=== PATIENT | female | born 1950 | race African-American/Black ===

== ENCOUNTER 2017-10-01 09:56 | Day surgery (SDC) | payer OTHER ==
[2017-09-28 15:14] VITALS: BMI 34.9
[2017-10-01] MEDS ORDERED: SODIUM CHLORIDE 0.9% P/F 10 ML VIAL IJ ONE (14:20)
[2017-10-01] MEDS ORDERED: LIDOCAINE HCL/PF 2% SDV 5ML VIAL ONE (14:20)
[2017-10-01] MEDS ORDERED: ceFAZolin SODIUM 1 GM VIAL ONE (14:20)
[2017-10-01] MEDS ORDERED: ONDANSETRON 4 MG/2 ML VIAL ONE ×2 (14:20→15:53)
[2017-10-01] MEDS ORDERED: DEXAMETHASONE SOD PHOSPHATE 4 MG/1 ML VIAL ONE (14:20)
[2017-10-01] MEDS ORDERED: MIDAZOLAM HCL 2 MG/2 ML SINGLE DOSE VIAL ONE (14:21)
[2017-10-01] MEDS ORDERED: PROPOFOL 20 ML ONE ×2 (14:24→14:49)
[2017-10-01] MEDS ORDERED: KETOROLAC TROMETHAMINE 30 MG/1 ML VIAL ONE (14:46)
[2017-10-01] MEDS ORDERED: oxyCODONE HCL 5 MG TABLET PO PRN ×2 (15:18)
[2017-10-01] MEDS ORDERED: ONDANSETRON 4 MG/2 ML VIAL IVPUSH PRN (15:18)
[2017-10-01] MEDS ORDERED: LACTATED RINGERS SOLUTION 1,000 ML IV SCH (15:30)
[2017-10-01] MEDS ORDERED: ONDANSETRON 4 MG/2 ML VIAL IVPUSH ONE (15:55)
[2017-10-01] MEDS ORDERED: oxyCODONE HCL 5 MG TABLET ONE (16:31)
[2017-10-01 17:23] VITALS: BP 139/78; PULSE 60; TEMP 98
--- NOTE | 2017-10-01 22:57 | OP ---
DATE OF OPERATION: 10/01/2017 SURGEON: Filemon Bennett M.D. SUPERVISOR GARMENT MANUFACTURING: Mo Bennett M.D. PREOPERATIVE DIAGNOSIS: Trigger thumb right. POSTOPERATIVE DIAGNOSIS: Trigger thumb right. OPERATION: Release of trigger thumb. ANESTHESIA: Conscious sedation with a local block. OPERATION DETAILS: Patient was identified, brought in operating room. Right upper extremity was prepped and draped in the routine manner with Betadine scrub solution, wiped with alcohol, DuraPrep applied. The volar crease of the metacarpophalangeal joint identified. This was incised. This is correlated exactly with a lump. It could be palpated through the subcutaneous tissues. The plane subcutaneous tissue developed right down to the tendon sheath. The A1 susana readily identified, incised with a 15 blade and fully released using blunt-tip Littler scissors. Flaps raised using a freer elevator. No complications. Wounds were thoroughly lavaged. Skin with subcutaneous tissue closed with 3-0 Monocryl. A light dressing applied. No complications. MD JIMMY Hale/[id number] MTDD
== END 2017-10-01 17:23 | disposition home or self-care (01) ==
LOC: FASU 09:56
PROVIDERS: ATTEND Orthopaedic Surgery Orthopaedic Surgery of the Spine
PROC: 0LN70ZZ Release Right Hand Tendon, Open Approach (ICD-10-PCS; principal; 2017-10-01 14:48)
DX: M65.311 Trigger thumb, right thumb (principal)
CPT/HCPCS: 94760

== ENCOUNTER 2020-07-22 04:27 | Inpatient (IN) | payer OTHER ==
[2020-07-22] MEDS ORDERED: ACETAMINOPHEN 1000 MG/100 ML VIAL (NON FORMULARY) IVPB ONE ×2 (18:32→19:10)
[2020-07-22] MEDS ORDERED: ACETAMINOPHEN INJECTION 100 ML IVPB ONE (18:44)
[2020-07-22] MEDS ORDERED: EPHEDRINE SULFATE/0.9% NACL/PF 50 MG/10 ML SYRINGE NR ONE (19:52)
[2020-07-22] MEDS ORDERED: LIDOCAINE HCL/PF 2% SDV 5ML VIAL ONE (19:52)
[2020-07-22] MEDS ORDERED: DEXAMETHASONE SOD PHOSPHATE 4 MG/1 ML VIAL ONE (19:52)
[2020-07-22] MEDS ORDERED: ONDANSETRON 4 MG/2 ML VIAL ONE (19:52)
[2020-07-22] MEDS ORDERED: PROPOFOL 20 ML ONE ×2 (19:52)
[2020-07-22] MEDS ORDERED: ROCURONIUM BROMIDE 100 MG/10 ML VIAL ONE (19:53)
[2020-07-22] MEDS ORDERED: SUCCINYLCHOLINE CHLORIDE 200 MG/10 ML SYRINGE ONE (19:53)
[2020-07-22] MEDS ORDERED: MIDAZOLAM HCL 2 MG/2 ML SINGLE DOSE VIAL ONE (20:22)
[2020-07-22] MEDS ORDERED: GLYCOPYRROLATE 0.2 MG/1 ML VIAL ONE (21:29)
[2020-07-22] MEDS ORDERED: NEOSTIGMINE METHYLSULFATE 0.5 MG/ML - 10 ML MDV ONE (21:29)
[2020-07-22] MEDS ORDERED: ONDANSETRON 4 MG/2 ML VIAL IVPUSH PRN ×2 (22:06→23:42)
[2020-07-22] MEDS: LACTATED RINGERS SOLUTION 1,000 ML IV SCH ×2 (23:00→23:05)
[2020-07-22] MEDS ORDERED: diazePAM CARPU-JECT 10 MG/2 ML DISP.SYRIN IVPUSH PRN (23:42)
[2020-07-22] MEDS ORDERED: LACTATED RINGERS SOLUTION 1,000 ML IV SCH (23:45)
[2020-07-23] MEDS: CYCLOBENZAPRINE HCL 5 MG TABLET PO SCH ×3 (00:33→21:20)
[2020-07-23] MEDS: HYDROmorphone HCl 2 MG/ML VIAL SQ PRN (00:57)
[2020-07-23 08:55] LABS: HEMATOCRIT 29.2 % (32.4-45.2); HEMOGLOBIN 9.7 GM/dL (10.7-15.3); MCHC 33.3 g/dl (32.0-36.0); MEAN CELL VOLUME 93.2 fl (80-96); MEAN PLT VOLUME 7.2 fl (7.5-11.1); PLATELET COUNT 334 K/MM3 (134-434); RBC 3.14 M/mm3 (3.60-5.2); RDW 14.2 % (11.6-15.6); WHITE BLOOD COUNT 6.9 K/mm3 (4.0-10.0)
[2020-07-23 09:35] LABS: CALCIUM 8.8 mg/dL (8.5-10.1); MAGNESIUM 1.9 mg/dL (1.8-2.4)
[2020-07-23 09:36] LABS: CREATININE 0.7 mg/dL (0.55-1.3); PHOSPHOROUS 3.9 mg/dL (2.5-4.9)
[2020-07-23] MEDS: LACTATED RINGERS SOLUTION 1,000 ML IV SCH (09:58)
[2020-07-23] MEDS: LISINOPRIL 10 MG TABLET PO SCH (09:59)
[2020-07-23] MEDS: PANTOPRAZOLE 40 MG TABLET PO SCH (09:59)
[2020-07-23] MEDS: HYDROCHLOROTHIAZIDE 12.5 MG CAPSULE (FP) PO SCH (09:59)
[2020-07-23] MEDS ORDERED: PATIENT'S OWN MEDICATION (NON-FORMULARY) (Lidocaine [Lidocaine] 1 EACH Adh..Patch) TP SCH (10:00)
[2020-07-23] MEDS: ACETAMINOPHEN 1000 MG/100 ML VIAL (NON FORMULARY) IVPB PRN (10:00)
[2020-07-23] MEDS ORDERED: DEXTROSE 5%-WATER - 50 ML IVPB ONE ×2 (11:57→17:11)
[2020-07-23] MEDS ORDERED: PIPERACILLIN/TAZOBACTAM 3.375 GM VIAL IVPB ONE ×2 (11:57→17:11)
[2020-07-23] MEDS: PIPERACILLIN/TAZOB 3.375 GM 3.375 GM in DEXTROSE 5%-WATER - 50 ML IVPB SCH ×2 (11:58→17:19)
[2020-07-23] MEDS ORDERED: PIPERACILLIN/TAZOB 3.375 GM 3.375 GM in DEXTROSE 5%-WATER - 50 ML IVPB SCH (13:00)
[2020-07-23] MEDS: LACTOBACILLUS ACIDOPHILUS 1 TABLET PO SCH ×2 (14:12→21:21)
[2020-07-23] MEDS: oxyCODONE HCL 5 MG TABLET PO PRN ×2 (14:13→21:20)
[2020-07-23] MEDS ORDERED: PIPERACILLIN/TAZOB 4.5 GM 4.5 GM in DEXTROSE 5%-WATER 100 ML IVPB SCH (15:00)
[2020-07-23] MEDS ORDERED: AMPICILLIN NA/SULBACTAM NA 3 GM in SODIUM CHLORIDE 100 ML IVPB SCH (15:00)
[2020-07-23 15:02] VITALS: BMI 35.2
[2020-07-24] MEDS ORDERED: DEXTROSE 5%-WATER - 50 ML IVPB ONE ×3 (01:19→16:53)
[2020-07-24] MEDS ORDERED: PIPERACILLIN/TAZOBACTAM 3.375 GM VIAL IVPB ONE ×3 (01:19→16:53)
[2020-07-24] MEDS: oxyCODONE HCL 5 MG TABLET PO PRN ×5 (01:30→21:42)
[2020-07-24] MEDS: PIPERACILLIN/TAZOB 3.375 GM 3.375 GM in DEXTROSE 5%-WATER - 50 ML IVPB SCH ×3 (01:56→17:05)
[2020-07-24] MEDS: LACTOBACILLUS ACIDOPHILUS 1 TABLET PO SCH ×3 (06:10→21:20)
[2020-07-24 08:48] LABS: HEMATOCRIT 29.3 % (32.4-45.2); HEMOGLOBIN 9.8 GM/dL (10.7-15.3); MCH 31.1 pg (25.7-33.7); MCHC 33.3 g/dl (32.0-36.0); MEAN CELL VOLUME 93.3 fl (80-96); MEAN PLT VOLUME 7.2 fl (7.5-11.1); PLATELET COUNT 332 K/MM3 (134-434); RBC 3.14 M/mm3 (3.60-5.2); RDW 14.1 % (11.6-15.6); WHITE BLOOD COUNT 8.3 K/mm3 (4.0-10.0)
[2020-07-24 09:11] LABS: BLOOD UREA NITROGEN 11.3 mg/dL (7-18); CALCIUM 8.6 mg/dL (8.5-10.1)
[2020-07-24 09:15] LABS: CREATININE 0.7 mg/dL (0.55-1.3)
[2020-07-24] MEDS: PANTOPRAZOLE 40 MG TABLET PO SCH (10:25)
[2020-07-24] MEDS: HYDROCHLOROTHIAZIDE 12.5 MG CAPSULE (FP) PO SCH (10:25)
[2020-07-24] MEDS: LISINOPRIL 10 MG TABLET PO SCH (10:25)
[2020-07-24] MEDS: CYCLOBENZAPRINE HCL 5 MG TABLET PO SCH (10:25)
[2020-07-24] MEDS ORDERED: POLYETHYLENE GLYCOL 3350 119 GM BTL PO PRN (17:47)
[2020-07-24] MEDS ORDERED: POLYETHYLENE GLYCOL 3350 119 GM BTL PO ONE (17:47)
[2020-07-24] MEDS ORDERED: POTASSIUM CHLORIDE TABS 20 MEQ TABLET.ER (FP) PO ONE (17:57)
[2020-07-24] MEDS: DOCUSATE SODIUM 100 MG CAPSULE (FP) PO SCH (18:49)
[2020-07-24] MEDS: CYCLOBENZAPRINE HCL 10 MG TABLET (FP) PO SCH (21:20)
[2020-07-25] MEDS ORDERED: PIPERACILLIN/TAZOBACTAM 3.375 GM VIAL IVPB ONE ×3 (00:58→16:43)
[2020-07-25] MEDS ORDERED: DEXTROSE 5%-WATER - 50 ML IVPB ONE ×3 (00:59→16:43)
[2020-07-25] MEDS: PIPERACILLIN/TAZOB 3.375 GM 3.375 GM in DEXTROSE 5%-WATER - 50 ML IVPB SCH ×3 (01:26→17:03)
[2020-07-25] MEDS: LACTOBACILLUS ACIDOPHILUS 1 TABLET PO SCH ×3 (05:31→22:05)
[2020-07-25 09:02] LABS: HEMATOCRIT 29.4 % (32.4-45.2); HEMOGLOBIN 9.9 GM/dL (10.7-15.3); MCH 30.9 pg (25.7-33.7); MCHC 33.7 g/dl (32.0-36.0); MEAN CELL VOLUME 91.8 fl (80-96); MEAN PLT VOLUME 7.1 fl (7.5-11.1); PLATELET COUNT 352 K/MM3 (134-434); WHITE BLOOD COUNT 8.2 K/mm3 (4.0-10.0)
[2020-07-25] MEDS: ACETAMINOPHEN 1000 MG/100 ML VIAL (NON FORMULARY) IVPB PRN (09:16)
[2020-07-25 09:22] LABS: CALCIUM 8.8 mg/dL (8.5-10.1)
[2020-07-25 09:23] LABS: ALBUMIN 2.4 g/dl (3.4-5.0); BLOOD UREA NITROGEN 8.6 mg/dL (7-18)
[2020-07-25 09:26] LABS: CREATININE 0.7 mg/dL (0.55-1.3)
[2020-07-25 09:27] LABS: BILIRUBIN,TOTAL 0.4 mg/dL (0.2-1); TOT PROT 6.4 g/dl (6.4-8.2)
[2020-07-25] MEDS: LISINOPRIL 10 MG TABLET PO SCH (09:29)
[2020-07-25] MEDS: HYDROCHLOROTHIAZIDE 12.5 MG CAPSULE (FP) PO SCH ×2 (09:44→16:04)
[2020-07-25] MEDS: DOCUSATE SODIUM 100 MG CAPSULE (FP) PO SCH (09:44)
[2020-07-25] MEDS: PANTOPRAZOLE 40 MG TABLET PO SCH (09:44)
[2020-07-25] MEDS: CYCLOBENZAPRINE HCL 10 MG TABLET (FP) PO SCH ×2 (09:44→22:06)
[2020-07-25] MEDS: HYDROmorphone HCl 2 MG/ML VIAL SQ PRN (15:32)
[2020-07-25] MEDS ORDERED: PROPOFOL 20 ML ONE (19:34)
[2020-07-25] MEDS ORDERED: ONDANSETRON 4 MG/2 ML VIAL IVPUSH PRN (20:05)
[2020-07-25] MEDS ORDERED: ACETAMINOPHEN 325 MG TABLET (FP) PO PRN (20:05)
[2020-07-25] MEDS ORDERED: MIDAZOLAM HCL 2 MG/2 ML SINGLE DOSE VIAL ONE (20:10)
[2020-07-25] MEDS ORDERED: ONDANSETRON 4 MG/2 ML VIAL ONE (21:02)
[2020-07-25] MEDS ORDERED: DEXAMETHASONE SOD PHOSPHATE 4 MG/1 ML VIAL ONE (21:02)
[2020-07-25] MEDS ORDERED: HYDROmorphone HCl 2 MG/ML VIAL ONE (21:11)
[2020-07-26] MEDS ORDERED: PIPERACILLIN/TAZOBACTAM 3.375 GM VIAL IVPB ONE ×3 (01:08→17:13)
[2020-07-26] MEDS ORDERED: DEXTROSE 5%-WATER - 50 ML IVPB ONE ×3 (01:08→17:13)
[2020-07-26] MEDS: PIPERACILLIN/TAZOB 3.375 GM 3.375 GM in DEXTROSE 5%-WATER - 50 ML IVPB SCH ×3 (02:05→17:17)
[2020-07-26] MEDS: LACTOBACILLUS ACIDOPHILUS 1 TABLET PO SCH ×3 (05:48→21:14)
[2020-07-26 09:00] LABS: HEMATOCRIT 31.2 % (32.4-45.2); HEMOGLOBIN 10.6 GM/dL (10.7-15.3); MCH 30.8 pg (25.7-33.7); MCHC 33.9 g/dl (32.0-36.0); PLATELET COUNT 415 K/MM3 (134-434); RBC 3.43 M/mm3 (3.60-5.2); RDW 14.2 % (11.6-15.6); WHITE BLOOD COUNT 10.7 K/mm3 (4.0-10.0)
[2020-07-26] MEDS ORDERED: PT OWN MED DRAWER 7, Y5N ONE (09:20)
[2020-07-26] MEDS: morphine SULFATE 4 MG/ML VIAL IVPUSH PRN ×2 (09:28→13:32)
[2020-07-26 09:30] LABS: ALBUMIN 2.5 g/dl (3.4-5.0); CALCIUM 9.6 mg/dL (8.5-10.1)
[2020-07-26 09:31] LABS: BLOOD UREA NITROGEN 11.5 mg/dL (7-18)
[2020-07-26] MEDS: DOCUSATE SODIUM 100 MG CAPSULE (FP) PO SCH (09:31)
[2020-07-26] MEDS: PANTOPRAZOLE 40 MG TABLET PO SCH (09:32)
[2020-07-26] MEDS: LISINOPRIL 10 MG TABLET PO SCH (09:32)
[2020-07-26] MEDS: HYDROCHLOROTHIAZIDE 12.5 MG CAPSULE (FP) PO SCH (09:32)
[2020-07-26] MEDS: CYCLOBENZAPRINE HCL 10 MG TABLET (FP) PO SCH ×2 (09:32→21:14)
[2020-07-26 09:34] LABS: CREATININE 0.7 mg/dL (0.55-1.3)
[2020-07-26 09:35] LABS: BILIRUBIN,TOTAL 0.5 mg/dL (0.2-1); TOT PROT 7.2 g/dl (6.4-8.2)
[2020-07-26] MEDS ORDERED: oxyCODONE HCL 5 MG TABLET PO PRN (13:29)
[2020-07-26] MEDS ORDERED: ACETAMINOPHEN 325 MG TABLET (FP) PO PRN (13:31)
[2020-07-26] MEDS: oxyCODONE HCL 5 MG TABLET PO PRN (17:31)
[2020-07-27] MEDS ORDERED: DEXTROSE 5%-WATER - 50 ML IVPB ONE ×3 (00:27→17:28)
[2020-07-27] MEDS ORDERED: PIPERACILLIN/TAZOBACTAM 3.375 GM VIAL IVPB ONE ×3 (00:27→17:28)
[2020-07-27] MEDS: PIPERACILLIN/TAZOB 3.375 GM 3.375 GM in DEXTROSE 5%-WATER - 50 ML IVPB SCH ×3 (01:25→17:54)
[2020-07-27] MEDS: LACTOBACILLUS ACIDOPHILUS 1 TABLET PO SCH ×3 (05:36→21:04)
[2020-07-27] MEDS: oxyCODONE HCL 5 MG TABLET PO PRN ×3 (06:56→20:51)
[2020-07-27 07:56] LABS: HEMATOCRIT 30.4 % (32.4-45.2); HEMOGLOBIN 10.3 GM/dL (10.7-15.3); MCH 31.2 pg (25.7-33.7); MCHC 33.9 g/dl (32.0-36.0); MEAN PLT VOLUME 7.4 fl (7.5-11.1); PLATELET COUNT 369 K/MM3 (134-434); RDW 14.4 % (11.6-15.6)
[2020-07-27 08:13] LABS: BLOOD UREA NITROGEN 12.9 mg/dL (7-18)
[2020-07-27 08:14] LABS: CALCIUM 8.9 mg/dL (8.5-10.1)
[2020-07-27 08:16] LABS: CREATININE 0.8 mg/dL (0.55-1.3)
[2020-07-27] MEDS: PANTOPRAZOLE 40 MG TABLET PO SCH (09:01)
[2020-07-27] MEDS: LISINOPRIL 10 MG TABLET PO SCH (09:01)
[2020-07-27] MEDS: DOCUSATE SODIUM 100 MG CAPSULE (FP) PO SCH (09:01)
[2020-07-27] MEDS: HYDROCHLOROTHIAZIDE 12.5 MG CAPSULE (FP) PO SCH (09:01)
[2020-07-27] MEDS: CYCLOBENZAPRINE HCL 10 MG TABLET (FP) PO SCH ×2 (09:02→21:04)
[2020-07-27] MEDS ORDERED: KETOROLAC TROMETHAMINE 15 MG/ML VIAL IVPUSH ONE (13:30)
[2020-07-28] MEDS ORDERED: PIPERACILLIN/TAZOBACTAM 3.375 GM VIAL IVPB ONE ×4 (00:54→23:55)
[2020-07-28] MEDS ORDERED: DEXTROSE 5%-WATER - 50 ML IVPB ONE ×4 (00:54→23:56)
[2020-07-28] MEDS: PIPERACILLIN/TAZOB 3.375 GM 3.375 GM in DEXTROSE 5%-WATER - 50 ML IVPB SCH ×3 (01:16→18:24)
[2020-07-28] MEDS: LACTOBACILLUS ACIDOPHILUS 1 TABLET PO SCH ×3 (05:24→21:22)
[2020-07-28] MEDS: oxyCODONE HCL 5 MG TABLET PO PRN ×3 (05:44→19:22)
[2020-07-28 07:54] LABS: BASO % 0.8 % (0-2.0); EOS % 1.4 % (0-4.5); HEMATOCRIT 30.8 % (32.4-45.2); HEMOGLOBIN 10.5 GM/dL (10.7-15.3); LYMPH % 25.9 % (8-40); MCH 31.5 pg (25.7-33.7); MCHC 34.2 g/dl (32.0-36.0); MEAN CELL VOLUME 92.1 fl (80-96); MEAN PLT VOLUME 6.8 fl (7.5-11.1); MONO % 12.2 % (3.8-10.2); NEUT % 59.7 % (42.8-82.8); PLATELET COUNT 366 K/MM3 (134-434); RBC 3.35 M/mm3 (3.60-5.2); RDW 14.5 % (11.6-15.6); WHITE BLOOD COUNT 9.7 K/mm3 (4.0-10.0)
[2020-07-28 08:21] LABS: ALBUMIN 2.6 g/dl (3.4-5.0); BLOOD UREA NITROGEN 12.4 mg/dL (7-18); MAGNESIUM 1.8 mg/dL (1.8-2.4)
[2020-07-28 08:24] LABS: PHOSPHOROUS 2.8 mg/dL (2.5-4.9)
[2020-07-28 08:25] LABS: BILIRUBIN,TOTAL 0.5 mg/dL (0.2-1); TOT PROT 7.1 g/dl (6.4-8.2)
[2020-07-28] MEDS: PANTOPRAZOLE 40 MG TABLET PO SCH (09:10)
[2020-07-28] MEDS: DOCUSATE SODIUM 100 MG CAPSULE (FP) PO SCH (09:10)
[2020-07-28] MEDS: CYCLOBENZAPRINE HCL 10 MG TABLET (FP) PO SCH ×2 (09:10→21:22)
[2020-07-28] MEDS: HYDROCHLOROTHIAZIDE 12.5 MG CAPSULE (FP) PO SCH (09:10)
[2020-07-28] MEDS: LISINOPRIL 10 MG TABLET PO SCH (09:11)
[2020-07-29] MEDS: PIPERACILLIN/TAZOB 3.375 GM 3.375 GM in DEXTROSE 5%-WATER - 50 ML IVPB SCH ×3 (01:10→17:35)
[2020-07-29] MEDS: LACTOBACILLUS ACIDOPHILUS 1 TABLET PO SCH ×3 (05:12→21:25)
[2020-07-29] MEDS: oxyCODONE HCL 5 MG TABLET PO PRN ×3 (05:15→21:27)
[2020-07-29] MEDS ORDERED: DEXTROSE 5%-WATER - 50 ML IVPB ONE ×2 (09:53→17:19)
[2020-07-29] MEDS ORDERED: PIPERACILLIN/TAZOBACTAM 3.375 GM VIAL IVPB ONE ×2 (09:53→17:19)
[2020-07-29] MEDS: DOCUSATE SODIUM 100 MG CAPSULE (FP) PO SCH (09:57)
[2020-07-29] MEDS: HYDROCHLOROTHIAZIDE 12.5 MG CAPSULE (FP) PO SCH (09:57)
[2020-07-29] MEDS: PANTOPRAZOLE 40 MG TABLET PO SCH (09:59)
[2020-07-29] MEDS: LISINOPRIL 10 MG TABLET PO SCH (09:59)
[2020-07-29] MEDS: CYCLOBENZAPRINE HCL 10 MG TABLET (FP) PO SCH ×2 (09:59→21:25)
[2020-07-29] MEDS ORDERED: POLYETHYLENE GLYCOL 3350 119 GM BTL PO SCH (22:00)
[2020-07-30] MEDS ORDERED: PIPERACILLIN/TAZOBACTAM 3.375 GM VIAL IVPB ONE ×3 (00:35→17:33)
[2020-07-30] MEDS ORDERED: DEXTROSE 5%-WATER - 50 ML IVPB ONE ×2 (00:35→17:33)
[2020-07-30] MEDS: PIPERACILLIN/TAZOB 3.375 GM 3.375 GM in DEXTROSE 5%-WATER - 50 ML IVPB SCH ×3 (01:14→17:37)
[2020-07-30] MEDS: oxyCODONE HCL 5 MG TABLET PO PRN (05:29)
[2020-07-30] MEDS: LACTOBACILLUS ACIDOPHILUS 1 TABLET PO SCH ×2 (05:29→13:34)
[2020-07-30 08:41] LABS: BASO % 0.3 % (0-2.0); EOS % 1.8 % (0-4.5); HEMATOCRIT 31.7 % (32.4-45.2); HEMOGLOBIN 10.6 GM/dL (10.7-15.3); LYMPH % 24.1 % (8-40); MCH 30.7 pg (25.7-33.7); MCHC 33.5 g/dl (32.0-36.0); MEAN CELL VOLUME 91.5 fl (80-96); MEAN PLT VOLUME 7.4 fl (7.5-11.1); MONO % 9.7 % (3.8-10.2); NEUT % 64.1 % (42.8-82.8); PLATELET COUNT 387 K/MM3 (134-434); RBC 3.46 M/mm3 (3.60-5.2); RDW 14.4 % (11.6-15.6); WHITE BLOOD COUNT 9.5 K/mm3 (4.0-10.0)
[2020-07-30 09:08] LABS: ALBUMIN 2.6 g/dl (3.4-5.0); BLOOD UREA NITROGEN 10.4 mg/dL (7-18); CALCIUM 9.5 mg/dL (8.5-10.1)
[2020-07-30 09:12] LABS: CREATININE 0.8 mg/dL (0.55-1.3); PHOSPHOROUS 3.6 mg/dL (2.5-4.9)
[2020-07-30 09:13] LABS: BILIRUBIN,TOTAL 0.6 mg/dL (0.2-1); TOT PROT 7.2 g/dl (6.4-8.2)
[2020-07-30] MEDS ORDERED: POLYETHYLENE GLYCOL 3350 119 GM BTL PO SCH (10:00)
[2020-07-30] MEDS: HYDROCHLOROTHIAZIDE 12.5 MG CAPSULE (FP) PO SCH (10:13)
[2020-07-30] MEDS: DOCUSATE SODIUM 100 MG CAPSULE (FP) PO SCH (10:13)
[2020-07-30] MEDS: LISINOPRIL 10 MG TABLET PO SCH (10:13)
[2020-07-30] MEDS: PANTOPRAZOLE 40 MG TABLET PO SCH (10:13)
[2020-07-30] MEDS: CYCLOBENZAPRINE HCL 10 MG TABLET (FP) PO SCH (10:14)
[2020-07-30 10:19] LABS: ANISOCYTOSIS 0; MACROCYTOSIS 0; PLATELET ESTIMATE NORMAL
[2020-07-30 16:23] VITALS: BP 130/71; PULSE 80; TEMP 97.7
== END 2020-07-30 18:25 | DRG 909 ==
LOC: JASUSAT 04:27 → SUATTDRO 04:27 → J8W 23:00 → JASUSAT 23:30 → J8W 23:30 → JASUSAT 07-23 14:10 → J8W 07-23 14:10
PROVIDERS: ADMIT Internal Medicine; ATTEND Internal Medicine
PROC: 2W15X6Z Compression of Back using Pressure Dressing (ICD-10-PCS; 2020-07-22)
PROC: 0HD6XZZ Extraction of Back Skin, External Approach (ICD-10-PCS; 2020-07-22)
PROC: 0H96XZX Drainage of Back Skin, External Approach, Diagnostic (ICD-10-PCS; principal; 2020-07-22 14:00)
PROC: 0WQLXZZ Repair Lower Back, External Approach (ICD-10-PCS; 2020-07-25)
PROC: 2W15X6Z Compression of Back using Pressure Dressing (ICD-10-PCS; 2020-07-25)
PROC: 0HD6XZZ Extraction of Back Skin, External Approach (ICD-10-PCS; 2020-07-25)
PROC: 2W05X6Z Change Pressure Dressing on Back (ICD-10-PCS; 2020-07-25)
PROC: 0W9L0ZZ Drainage of Lower Back, Open Approach (ICD-10-PCS; 2020-07-25)
DX: T81.32XA Disruption of internal operation (surgical) wound, not elsewhere classified, initial encounter (principal); Y83.8 Other surgical procedures as the cause of abnormal reaction of the patient, or of later complication, without mention of misadventure at the time of the procedure; B96.4 Proteus (mirabilis) (morganii) as the cause of diseases classified elsewhere; B96.5 Pseudomonas (aeruginosa) (mallei) (pseudomallei) as the cause of diseases classified elsewhere; B95.2 Enterococcus as the cause of diseases classified elsewhere; I10 Essential (primary) hypertension; D72.829 Elevated white blood cell count, unspecified
CPT/HCPCS: 36415; 80048; 80053; 83735; 84100; 85025; 85027; 87070; 87186; 87205; 94010; 94760; 97116-GP; 97162-GP; C9803; J0131; U0003; U0005